=== PATIENT | male | born 1970 | race Caucasian/White ===

== ENCOUNTER → 2017-09-30 | Outpatient (REF) | payer OTHER ==
[~2017-09-30] MED LIST: ALB17R INH; FLUT1DIS27 IH; PER PO; PROM12.546 PO
[2017-09-30 19:42] LABS: PLATELET COUNT, AUTOMATED 193 K/uL (150-450)
== END ==
PROVIDERS: ATTEND Physician Assistant Medical
DX: R06.02 Shortness of breath (principal)
CPT/HCPCS: 82040; 82247; 82310; 82374; 82435; 82565; 82947; 83690; 84075; 84132; 84155; 84295; 84450; 84460; 84520; 85025

== ENCOUNTER → 2018-01-03 | Outpatient (REF) | payer OTHER ==
[2018-01-03 14:54] LABS: PLATELET COUNT, AUTOMATED 207 K/uL (150-450)
== END ==
PROVIDERS: ATTEND Family Medicine
DX: R06.02 Shortness of breath (principal)
CPT/HCPCS: 82040; 82247; 82310; 82374; 82435; 82565; 82947; 84075; 84132; 84155; 84295; 84450; 84460; 84520; 85025; 85379

== ENCOUNTER → 2018-02-18 | Outpatient (CLI) | payer OTHER ==
[~2018-02-18] MED LIST changes: +BARIUM SULFATE 176 GM BTL PO ONE; +BARIUM SULFATE 340 GM POWD ONE
--- NOTE | 2018-02-18 15:49 | RADIOLOGY IMAGING REPORT ---
FACILITY: [facility] PATIENT NAME: Bon Malik : 1970 MR: [id number] V: [id number] EXAM DATE: ORDERING PHYSICIAN: JOHN PACHECO TECHNOLOGIST: Location: [facility] Patient: Bon Malik : 1970 Visit/Account:[id number] Date of Sevice: 02/18/2018 Exam type: UPPER GI SERIES W/AIR W/KUB History: Chronic GERD, asthma Comparison: None. Findings: Double contrast upper GI series was performed with thick and thin barium and air contrast. There is a small hiatal hernia with a moderate to large amount of gastroesophageal reflux. No significant eso phageal narrowing or mucosal erosion is seen. No abnormality of the stomach duodenal bulb or duodena l C-loop is present the fluoroscopy dose area product was 983.72 micro-Alexis per meter squared IMPRESSION: 1. Small hiatal hernia with a moderate to large amount of gastric esophageal reflux although no evid ence of esophageal narrowing or mucosal erosion The remainder the upper chest series was unremarkable Report Dictated By: Anastasia Hatfield MD at 02/18/2018 3:42 PM Report E-Signed By: Anastasia Hatfield MD at 02/18/2018 3:44 PM WSN:[email or web address]
== END ==
LOC: RAD 01:14
PROVIDERS: ATTEND Family Medicine
DX: K44.9 Diaphragmatic hernia without obstruction or gangrene (principal); K21.9 Gastro-esophageal reflux disease without esophagitis
CPT/HCPCS: 74247